=== PATIENT | female | born 1985 | race Hispanic/Latino ===

== ENCOUNTER 2018-05-08 23:02 | Emergency (ER) | payer OTHER ==
[2018-05-08 23:26] VITALS: O2SAT 98
[2018-05-08] MEDS ORDERED: Promethazine DM 6.25 mg-15 mg/5 ml Syrup PO STA (23:35)
[2018-05-09] MEDS ORDERED: Promethazine DM 6.25 mg-15 mg/5 ml Syrup ONE (00:31)
[2018-05-09 00:33] LABS: BASO % 0.4 % (0.0-2.0); EOS # 0.1 K/uL (0.0-0.7); EOS % 1.3 % (0.0-4.0); HEMOGLOBIN 12.6 g/dL (12.0-16.0); INR 1.1; LYMPH # 0.7 K/uL (1.0-4.3); LYMPH % 7.7 % (20.0-40.0); MEAN CELL VOLUME 86.2 fl (81.0-99.0); MEAN CORPUSCULAR HEMOGLOBIN 29.1 pg (27.0-31.0); MEAN CORPUSCULAR HGB CONC 33.8 g/dL (33.0-37.0); MEAN PLATELET VOLUME 7.5 fl (7.2-11.7); MONO # 0.9 K/uL (0.0-0.8); MONO % 9.5 % (0.0-10.0); NEUT # 7.5 K/uL (1.8-7.0); NEUT % 81.1 % (50.0-75.0); PLATELET COUNT 208 K/uL (130-400); PROTHROMBIN TIME 12.2 Seconds (9.8-13.1); RBC 4.34 Mil/uL (3.80-5.20); WHITE BLOOD COUNT 9.3 K/uL (4.8-10.8)
--- NOTE | 2018-05-09 00:33 | ED PDOC ---
HPI: Chest Pain Time Seen by Provider: 05/08/18 23:17 Chief Complaint (Nursing): Chest Pain Chief Complaint (Provider): Chest Pain History Per: Patient History/Exam Limitations: no limitations Onset/Duration Of Symptoms: Sudden Onset Additional Complaint(s): 32 y/o female with history of osteogenesis dissecans and hypothyroidism presents to the ED complaining of chest pain. Patient reports she has had a cough for x2 months that comes and goes. She states she has seen her PMD and gone to urgent care multiple times. She states she has been on multiple rounds of steroids and inhalers without relief. Patient is currently on antibiotics. Earlier tonight when she was lying down on her cough she had sudden onset mid-sternal chest pain and difficulty breathing. states that she is cool and clammy and that she nearly fainted. Patient also states that she felt like she was going to thr ow up. She is currently coughing uncontrollably and had a temperature of 38 degrees Celsius at urgent care. Past Medical History Reviewed: Historical Data, Nursing Documentation, Vital Signs Vital Signs: Last Vital Signs Temp 98.2 F 05/08/18 23:21 Pulse 114 H 05/08/18 23:21 Resp 18 05/08/18 23:21 BP 122/78 05/08/18 23:21 Pulse Ox 98 05/08/18 23:21 - Medical History PMH: Hypothyroidism Other PMH: osteogenesis dissecans - Family History Family History: States: Unknown Family Hx - Home Medications Home Medications: Ambulatory Orders Medication Instructions Recorded Promethazine [Phenergan Syrup] 12.5 mg PO BID PRN #100 ml 05/09/18 - Allergies Allergies/Adverse Reactions: Allergies Allergy/AdvReac Type Severity Reaction Status Date / Time No Known Allergies Allergy Verified 05/08/18 23:26 Review of Systems ROS Statement: Except As Marked, All Systems Reviewed And Found Negative Cardiovascular: Positive for: Chest Pain Respiratory: Positive for: Cough, Shortness of Breath Physical Exam - Reviewed Nursing Documentation Reviewed: Yes Vital Signs Reviewed: Yes - Physical Exam Appears: Positive for: No Acute Distress (anxious appearing) Head Exam: Positive for: ATRAUMATIC, NORMAL INSPECTION, NORMOCEPHALIC Skin: Positive for: Normal Color, Warm, DRY Eye Exam: Positive for: EOMI, Normal appearance, PERRL ENT: Positive for: Normal ENT Inspection Neck: Positive for: Normal, Painless ROM Cardiovascular/Chest: Positive for: Regular Rate, Rhythm, Tachycardia. Negative for: Murmur Respiratory: Positive for: Normal Breath Sounds, Other (actively coughing). Negative for: Respiratory Distress Gastrointestinal/Abdominal: Positive for: Normal Exam, Soft. Negative for: Tenderness Back: Positive for: Normal Inspection Extremity: Positive for: Normal ROM. Negative for: Pedal Edema, Deformity Neurological/Psych: Positive for: Awake, Alert, Normal Tone, Mood/Affect (a nxious appearing). Negative for: Motor/Sensory Deficits - Laboratory Results Result Diagrams: 05/08/18 23:55 05/08/18 23:55 - ECG O2 Sat by Pulse Oximetry: 98 (RA) Pulse Ox Interpretation: Normal Medical Decision Making Medical Decision Making: Time: 23:34 A/P: acute bronchitis vs bronchospasm vs URI vs pneumonia vs PE * Labs * CXR * Promethazine 10 ml * Toradol 30 mg 145AM --Patient's cough has much improved, pain improved --Vitals are better --Discussed slight elevation in D-Dimer, explained that if symptoms are resolving, then low likelihood of PE at this time --Advised patient to followup with her primary care doctors --Patient already on clarithromycin, advised to continue medications, will recommend phenergan for symptomatic control and NSAIDs --Well appearing, much improved upon discharge Scribe Attestation: Documented by Eugene Monsivais acting as a scribe for Michael Quintero MD. Provider Scribe Attestation: All medical record entries made by the Scribe were at my direction and personally dictated by me. I have reviewed the chart and agree that the record accurately reflects my personal performance of the history, physical exam, medical decision making, and the department course for this patient. I have also personally directed, reviewed, and agree with the discharge instructions and disposition. Disposition - Clinical Impression Clinical Impression: Atypical chest pain - Disposition Referrals: Milena Arriaga [Outside] Disposition: Routine/Home Disposition Time: 01:59 Condition: IMPROVED Prescriptions: Promethazine [Phenergan Syrup] 12.5 mg PO BID PRN #100 ml PRN Reason: Cough Instructions: Costochondritis, Chest Pain That Is Not Caused by the Heart (DC) Forms: [employer] (Dutch)
[2018-05-09 00:36] LABS: BLOOD UREA NITROGEN 7 mg/dl (7-17); CALCIUM 9.2 mg/dL (8.4-10.2); GFR NON-AFRICAN AMERICAN > 60; PARTIAL THROMBOPLASTIN TIME 24.9 Seconds (25.6-37.1)
[2018-05-09 01:40] VITALS: RESP 20
[2018-05-09 02:45] LABS: EOSINOPHIL 2 % (0-7); LYMPHOCYTE 6 % (20-50); MONOCYTE 9 % (0-10); NEUTROPHIL 83 % (42-75); TOTAL CELLS COUNTED 100
[2018-05-09 02:46] LABS: LARGE PLATELETS PRESENT; PLATELET ESTIMATE NORMAL (NORMAL); TOXIC GRANULATION PRESENT
[2018-05-09 02:53] VITALS: BP 123/74; PULSE 99; TEMP 98.3
--- NOTE | 2018-05-09 08:09 | RAD ---
Date of service: 05/08/2018 HISTORY: chest pain COMPARISON: None available. FINDINGS: LUNGS: No active pulmonary disease. PLEURA: No significant pleural effusion identified, no pneumothorax apparent. CARDIOVASCULAR: No aortic atherosclerotic calcification present. Normal cardiac size. No pulmonary vascular congestion. OSSEOUS STRUCTURES: No significant abnormalities. VISUALIZED UPPER ABDOMEN: Normal. OTHER FINDINGS: None. IMPRESSION: No acute cardiopulmonary disease appreciated.
--- NOTE | 2018-05-09 17:28 | CARD ---
APPROVED REPORT Date of service: 05/08/2018 EKG Measurement Heart [id number] <Conclusion> Sinus tachycardia Rightward axis Borderline ECG
== END 2018-05-09 02:40 | disposition home or self-care (01) ==
LOC: H.ER 23:02
DX: R07.89 Other chest pain (principal)
CPT/HCPCS: 71045; 80048; 81025; 84484; 85025; 85378; 85610; 85730; 93005; 96374; 99285; J1885